=== PATIENT | female | born 1950 | race Caucasian/White ===

== ENCOUNTER 2024-10-29 18:00 | Inpatient (IN) | payer MEDICARE, OTHER ==
[~2024-10-29] VITALS: Ht 157.5 cm; Wt 58.2 kg
[2024-10-29] MEDS: LIDOCAINE 5% TOPICAL PATCH TOP ONE (18:15)
[2024-10-29] MEDS: ACETAMINOPHEN 325 MG TAB PO ONE (18:15)
--- NOTE | 2024-10-29 18:28 | ED.PDOC ---
History of Present Illness HPI Comments 73 y/o F, with a history of fibromyalgia, HTN, thyroid disease, and pacemaker, presents with c/o left-chest wall pain s/p mechanical fall and injury, today. Patient endorses on developing pain after sustaining a fall onto her left-chest area when she tripped on a carpet at home 3x days ago. She comments pain being an 8/10 in severity, not losing consciousness then, and denies being on any blood thinner medications, currently. Patient reports no further relevant or pertinent information, such as having any prior symptoms or previous injuries. She denies having any additional injuries, weakness, numbness, tingling, shortness of breath, or other associated symptoms or modifiers at this time. Chief Complaint: Fall Injury Time Seen by MD: 18:10 Primary Care Provider: Tianna Ardon Notes: Nurses Notes, Medications, Allergies Allergies: Coded Allergies: NO KNOWN ALLERGIES (Unverified , 10/29/24) Information Source: Patient Mode of Arrival: Ambulatory Severity: Moderate Timing: Days Duration: Since onset Prehospital treatment: None Past Medical History PAST MEDICAL HISTORY: HTN, Thyroid Past Medical History (Other): fibromyalgia Surgical History: Pacemaker PROGRAM RESEARCH SPECIALIST History: Denies all PROGRAM RESEARCH SPECIALIST Hx Family History Family History: Unknown Social History Smoker: Non-Smoker Alcohol: Denies ETOH Use Drugs: Denies Drug Use Lives In: Home Musculoskeletal: reports: others (left-chest wall pain ) All Other Systems: Reviewed and Negative (negative unless otherwise stated above or in HPI) Physical Exam General Appearance: No Apparent Distress, Normal HEENT: Normal ENT Inspection, Pharynx Normal, TMs Normal Neck: Full Range of Motion, Non-Tender, Normal, Normal Inspection Respiratory: Chest Non-Tender, Lungs Clear, No Accessory Muscle Use, No Respiratory Distress, Normal Breath Sounds Cardiovascular: No Edema, No JVD, No Murmur, No Gallop, Normal Peripheral Pulses, Regular Rate/Rhythm Breast Exam: Deferred Gastrointestinal: No Organomegaly, Non Tender, No Pulsatile Mass, Normal Bowel Sounds, Soft Genitalia: Deferred Pelvic: Deferred Rectal: Deferred Extremities: No calf tenderness, Normal capillary refill, Normal inspection, Normal range of motion, Non-tender, No pedal edema Musculoskeletal : Location: Left Extremity Location: Chest (chest wall) Apperance: Normal, Tenderness Neurologic: Alert, 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 Was a procedure done?: No Differential Dx Considerations may include: musculoskeletal pain, fractures, contusion, bruising X-Ray, Labs, Meds, VS Vital Signs Date Time Temp Pulse Resp B/P (MAP) Pulse Ox O2 Delivery O2 Flow Rate FiO2 10/29/24 19:45 82 19 96 Room Air 10/29/24 19:45 100.9 82 19 199/85 (123) 96 100.9 10/29/24 18:09 97.7 100 18 200/86 (124) 96 Lab Test 10/29/24 20:29 10/29/24 19:04 Range/Units Lactic Acid Level Pending White Blood Count 8.3 4.4-10.8 10^3/uL Red Blood Count 5.12 4.0-5.20 10^6/uL Hemoglobin 15.0 12.2-16.2 g/dL Hematocrit 45.2 36.0-46.0 % Mean Corpuscular Volume 88.1 80.0-100.0 fL Mean Corpuscular Hemoglobin 29.4 28.0-32.0 pg Mean Corpuscular Hemoglobin Concent 33.3 32.0-36.0 g/dL Red Cell Distribution Width 15.0 H 11.8-14.3 % Platelet Count 191 140-450 10^3/uL Mean Platelet Volume 10.0 6.9-10.8 fL Neutrophils (%) (Auto) 81.1 H 37.0-80.0 % Lymphocytes (%) (Auto) 8.2 L 10.0-50.0 % Monocytes (%) (Auto) 9.0 0.0-12.0 % Eosinophils (%) (Auto) 1.3 0.0-7.0 % Basophils (%) (Auto) 0.4 0.0-2.0 % Neutrophils # (Auto) 6.7 1.6-8.6 10 ^3/uL Lymphocytes # (Auto) 0.7 0.4-5.4 10 ^3/uL Monocytes # (Auto) 0.7 0-1.3 10 ^3/uL Eosinophils # (Auto) 0.1 0-0.8 10 ^3/uL Basophils # (Auto) 0 0-0.2 10 ^3/uL Nucleated Red Blood Cells 0.1 % Sodium Level 139 136-145 mmol/L Potassium Level 3.6 3.5-5.1 mmol/L Chloride Level 106 98-107 mmol/L Carbon Dioxide Level 24 20-31 mmol/L Anion Gap 9 5-15 Blood Urea Nitrogen 11 9-23 mg/dL Creatinine 0.91 0.550-1.02 mg/dL Glomerular Filtration Rate Calc 67 >90 mL/min BUN/Creatinine Ratio 12.1 10.0-20.0 Serum Glucose 101 74-106 mg/dL Calcium Level 10.3 8.7-10.4 mg/dL Troponin I High Sensitivity 7 </=34 ng/L Current Medications Medications (Trade) Dose Ordered Sig/Cherie Route Start Time Stop Time Status Last Admin Acetaminophen (Tylenol Tablet) 650 mg ONCE ONCE PO 10/29/24 18:15 10/29/24 18:16 DC 10/29/24 18:15 Lidocaine (Lidoderm 5% Topical Patch) 1 patch ONCE ONCE TOP 10/29/24 18:15 10/29/24 18:16 DC 10/29/24 18:15 [place] [id number] Ph: [phone] DIAGNOSTIC IMAGING Diagnostic Imaging Report : [id number] Signed PATIENT: ROGERS PERRY ACCT: [id number] UNIT: [id number] : 1950 LOC: ER ROOM / BED: / AGE / SEX: 73 / F ADM STATUS: REG ER SERVICE 10 ORDERING PHYSICIAN: MARICHUY ALMONTE MD PROCEDURE(s): CXR2 - CHEST TWO VIEWS ROUTINE REASON: Left sided chest pain ORDER NUMBER(s): [id number], ACCESSION NUMBER(s): [id number] XY CHEST TWO VIEWS ROUTINE CLINICAL HISTORY: Left sided chest pain COMPARISON: None TECHNIQUE: Frontal and lateral view of the chest was obtained FINDINGS: Lines and Tubes: None. Redemonstration of left sided pacemaker. Midline sternotomy wires are noted. Lungs: No focal consolidation. Pleura: No effusion. No pneumothorax. Cardiomediastinal contours: Unremarkable Bones: No acute osseous abnormality. IMPRESSION: No acute cardiopulmonary disease. ATED BY: KARLY MONCADA DO DICTATED DATE/TIME: 10/29/241848 SIGNED BY: KARLY MONCADA DO SIGNED DATE/TIME: 10/29/241848 CC: Time of 1ST Reevaluation: 18:40 Reevaluation 1ST: Unchanged Patient Education/Counseling: Diagnosis, Treatment Family Education/Counseling: No Family Present Additional Information reviewed previous ED physician note on 03/29/2010 ordered: EKG, troponin, CBC, BMP, CXR reviewed and concur with results listed: CXR Departure 1 Departure Time of Disposition: 20:57 (Patient with left-sided chest pain as well as AV for tachycardia and hypertension. We will treat patient for infection and admit patient for further workup.) Impression: Primary Impression: Acute chest pain Additional Impressions: Fever Qualified Codes: R50.9 - Fever, unspecified Hypertension Qualified Codes: I10 - Essential (primary) hypertension Disposition: ADMITTED INPATIENT Admit to: Med Surg Condition: Serious Critical Care Note Critical Care Time?: Yes Critical care comment: Acute chest pain Authorized and Performed by: Marichuy Almonte MD Total critical care time: Approximately 36 minutes Due to a high probability of clinically significant, life threatening deterioration, the patient required my highest level of preparedness to intervene emergently and I personally spent this critical care time directly and personally managing the patient. This critical care time included obtaining a history; examining the patient; pulse oximetry; ordering and review of studies; arranging urgent treatment with development of a management plan; evaluation of patient's response to treatment; frequent reassessment; and, discussions with other providers. This critical care time was performed to assess and manage the high probability of imminent, life-threatening deterioration that could result in multi-organ failure. It was exclusive of separately billable procedures and treating other patients and teaching time. Please see my other sections and the rest of the note for further information on patient assessment and treatment. Stability Stability form required: No Heart Score Heart Score: Heart Score Response (Comments) Value History Moderate Suspicious 1 EKG Repolarization Disturb 1 Age >65 2 Risk Factors >3 or Hx ASHD 2 Troponin >3 x's Normal limit 2 Total 8 I personally scribed for MARICHUY ALMONTE MD ([email or web address]) on 10/29/24 at 18:28. Electronically submitted by Francisco Guo ([email or web address]). I personally scribed for MARICHUY ALMONTE MD ([email or web address]) on 10/29/24 at 18:58. Electronically submitted by Francisco Guo ([email or web address]). MARICHUY ALMONTE MD Oct 29, 2024 18:28
--- NOTE | 2024-10-29 18:51 | DVH ---
XY CHEST TWO VIEWS ROUTINE CLINICAL HISTORY: Left sided chest pain COMPARISON: None TECHNIQUE: Frontal and lateral view of the chest was obtained FINDINGS: Lines and Tubes: None. Redemonstration of left sided pacemaker. Midline sternotomy wires are noted. Lungs: No focal consolidation. Pleura: No effusion. No pneumothorax. Cardiomediastinal contours: Unremarkable Bones: No acute osseous abnormality. IMPRESSION: No acute cardiopulmonary disease.
[2024-10-29 19:24] LABS: Basophils # (auto) 0 10 ^3/uL (0-0.2); Basophils % (auto) 0.4 % (0.0-2.0); Eosinophils # (auto) 0.1 10 ^3/uL (0-0.8); Eosinophils % (auto) 1.3 % (0.0-7.0); Hematocrit 45.2 % (36.0-46.0); Lymphocytes # (auto) 0.7 10 ^3/uL (0.4-5.4); Lymphocytes % (auto) 8.2 % (10.0-50.0); Mean Corpuscular Hemoglobin 29.4 pg (28.0-32.0); Mean Corpuscular Hgb Conc. 33.3 g/dL (32.0-36.0); Mean Corpuscular Volume 88.1 fL (80.0-100.0); Monocytes # (auto) 0.7 10 ^3/uL (0-1.3); Neutrophils # (auto) 6.7 10 ^3/uL (1.6-8.6); Neutrophils % (auto) 81.1 % (37.0-80.0); Nucleated Red Blood Cells % 0.1 %; Platelet Count (auto) 191 10^3/uL (140-450); Red Blood Cells 5.12 10^6/uL (4.0-5.20); White Blood Cell 8.3 10^3/uL (4.4-10.8)
[2024-10-29 19:34] LABS: Chloride 106 mmol/L (98-107); Potassium 3.6 mmol/L (3.5-5.1); Sodium 139 mmol/L (136-145)
[2024-10-29 19:35] LABS: Anion Gap 9 (5-15); Calcium 10.3 mg/dL (8.7-10.4); Carbon Dioxide 24 mmol/L (20-31)
[2024-10-29 19:40] LABS: BUN/Creatinine Ratio 12.1 (10.0-20.0); Blood Urea Nitrogen 11 mg/dL (9-23); Glucose 101 mg/dL (74-106)
[2024-10-29] MEDS: CEFEPIME 2GM/50ML NS 50 ML IV ONE (20:30)
[2024-10-29] MEDS: ONDANSETRON HCL 4 MG/2 ML VIAL IV ONE (21:48)
[2024-10-29 22:53] VITALS: O2SAT 98
[2024-10-29] MEDS ORDERED: ONDANSETRON HCL 4 MG/2 ML VIAL IV PRN (23:15)
[2024-10-29] MEDS ORDERED: MORPHINE SULFATE INJ 2 MG/ml SYRG IV PRN (23:15)
--- NOTE | 2024-10-29 23:40 | DVHHPRES ---
History of Present Illness Resident Creating Document: ABHISHEK MAHER RESIDENT Reason for Visit: left chest wall pain s/p fall History of Present Illness This is a 73-year-old female who comes into the ED with chief complaint of left- sided chest wall pain status post mechanical fall. Patient deny any current smoking, alcohol or drug abuse. She has a past medical history relevant for fibromyalgia, hypertension, hypothyroidism, pacemaker placement in 1984, aortic aneurysm repair three years ago. Patient stated that three days ago around midnight she stated the to go to the bathroom and trip on her carpet, she fell and landed on her left side, does not know she lost consciousness, she started experiencing severe pain on the left side of her chest, denied any nausea, vomiting, dizziness, lightheadedness, sei zures. Patient also states that she has been having chills and sensation of warmness, denies any abdominal pain, dysuria, urinary urgency or frequency, diarrhea or constipation. She currently states having mild left-sided chest pain, nontender, nonexertion al, relief by not moving. Cardiovascular: HTN, hyperipidemia Endocrine: Hypothyroidism Past Surgical History Pacemaker, aortic aneurysm repair Smoke: Quit ALCOHOL: none Drugs: None Review of Systems Constitutional: No: Fever, Chills, Sweats, Weakness, Malaise, Other Eyes: No: Pain, Vision change, Conjunctivae inflammation, Eyelid inflammation, Other, Redness ENT: No: Ear pain, Ear discharge, Nose pain, Nose discharge, Nose congestion, Mouth pain, Mouth swelling, Throat pain, Throat swelling, Other Respiratory: No: Cough, Dry, Shortness of breath, SOB with excertion, Wheezing, Hemoptysis, Pleuritic Pain, Sputum, Wheezing, Other Cardiovascular: No: Chest Pain, Palpitations, Orthopnea, Paroxysmal Noc. Dyspnea, Edema, Lt Headedness, Other Gastrointestinal: No: Nausea, Vomiting, Abdominal Pain, Diarrhea, Constipation, Melena, Hematochezia, Other Genitourinary: No Dysuria, No Frequency, No Incontinence, No Hematuria, No Retention, No Other Musculoskeletal: other (Left-sided chest wall pain); No: neck pain, shoulder pain, arm pain, back pain, hand pain, leg pain, foot pain Skin: No: Rash, Lesions, Jaundice, Bruising, Other Neurological: No: Weakness, Numbness, Incoordination, Change in speech, Confusion, Seizures, Other Allergies: Coded Allergies: NO KNOWN ALLERGIES (Unverified , 10/29/24) Medications Current Medications Medications Dose Ordered Sig/Cherie Route Start Time Stop Time Status Last Admin Dose Admin Morphine Sulfate 2 mg Q30M PRN IV 10/29/24 23:15 Carvedilol 12.5 mg Q12HR PO 10/30/24 10:00 Levothyroxine Sodium 88 mcg QAM@0600 PO 10/30/24 06:00 Acetaminophen/ Hydrocodone Bitart 1 tab Q4HPRN PRN PO 10/29/24 23:15 Hydralazine HCl 10 mg Q6HP PRN IV 10/29/24 23:15 Atorvastatin Calcium 20 mg HS PO 10/30/24 22:00 Ondansetron HCl 4 mg Q4HPRN PRN IV 10/29/24 23:15 Exam Vital Signs Vital Signs Date Time Temp Pulse Resp B/P (MAP) Pulse Ox O2 Delivery O2 Flow Rate FiO2 10/29/24 22:53 98 Room Air* 0 21 10/29/24 22:11 98.9 72 182/75 (110) 98.9 10/29/24 19:45 19 General Appearance: Alert, Oriented X3, Cooperative, No acute distress HEENT: Atraumatic, PERRLA, EOMI, Mucous membr. moist/pink Respiratory: Clear to auscultation, Normal air movement Cardiovascular: Regular rate, Normal S1, Normal S2, No murmurs Abdominal: Normal bowel sounds, Soft, No tenderness, No hepatospenomegaly Extremities: No clubbing, No cyanosis, No edema, Normal pulses Skin: No rashes, No breakdown, No significant lesion Neuro: Normal gait, Normal speech, Strength at 5/5 X4 ext, Normal tone Psych/Mental Status: Mental status NL, Mood NL Labs/Xrays Labs Test 10/29/24 21:42 10/29/24 20:29 10/29/24 19:04 Range/Units Troponin I High Sensitivity 6 </=34 ng/L Lactic Acid Level 1.0 0.4-2.0 mmol/L White Blood Count 8.3 4.4-10.8 10^3/uL Red Blood Count 5.12 4.0-5.20 10^6/uL Hemoglobin 15.0 12.2-16.2 g/dL Hematocrit 45.2 36.0-46.0 % Mean Corpuscular Volume 88.1 80.0-100.0 fL Mean Corpuscular Hemoglobin 29.4 28.0-32.0 pg Mean Corpuscular Hemoglobin Concent 33.3 32.0-36.0 g/dL Red Cell Distribution Width 15.0 H 11.8-14.3 % Platelet Count 191 140-450 10^3/uL Mean Platelet Volume 10.0 6.9-10.8 fL Neutrophils (%) (Auto) 81.1 H 37.0-80.0 % Lymphocytes (%) (Auto) 8.2 L 10.0-50.0 % Monocytes (%) (Auto) 9.0 0.0-12.0 % Eosinophils (%) (Auto) 1.3 0.0-7.0 % Basophils (%) (Auto) 0.4 0.0-2.0 % Neutrophils # (Auto) 6.7 1.6-8.6 10 ^3/uL Lymphocytes # (Auto) 0.7 0.4-5.4 10 ^3/uL Monocytes # (Auto) 0.7 0-1.3 10 ^3/uL Eosinophils # (Auto) 0.1 0-0.8 10 ^3/uL Basophils # (Auto) 0 0-0.2 10 ^3/uL Nucleated Red Blood Cells 0.1 % Sodium Level 139 136-145 mmol/L Potassium Level 3.6 3.5-5.1 mmol/L Chloride Level 106 98-107 mmol/L Carbon Dioxide Level 24 20-31 mmol/L Anion Gap 9 5-15 Blood Urea Nitrogen 11 9-23 mg/dL Creatinine 0.91 0.550-1.02 mg/dL Glomerular Filtration Rate Calc 67 >90 mL/min BUN/Creatinine Ratio 12.1 10.0-20.0 Serum Glucose 101 74-106 mg/dL Calcium Level 10.3 8.7-10.4 mg/dL Assessment/Plan Assessment/Plan #Left-sided chest wall pain status post mechanical fall #Noncardiac chest pain, likely costochondritis Ordered Head CT Ordered left rib x-ray [place] p.r.n. Pending UDS and urinalysis Ordered folate and B12 #Hypertensive urgency #Medical noncompliance Coreg 12.5 mg p.o. b.i.d. hydralazine 10 mg IV q.6 p.r.n. Ordered EKG Cardiac diet #Hyperlipidemia Lipitor 20 mg p.o. q.d. #Hypothyroidism Synthroid 88 mcg p.o. q.d. Order TSH #Fibromyalgia Gabapentin 300 mg p.o. t.i.d. Ordered ESR and CRP #History of aortic aneurysm repair #Status post pacemaker Monitor Goals of care were discussed for 30 minutes. Full code Case was discussed with Dr. Luna Plan discussed with: Patient My Orders Orders - ABHISHEK MAHER RESIDENT Procedure Category Date Status Time Admit ADMIT 10/29/24 Transmitted 23:06 Notify Md Of Changes VENKATA 10/29/24 In Process From Base 23:06 Morphine Sulfate PHA 10/29/24 In Process Injection 23:15 Electrocardigram EKG 10/29/24 Logged 23:06 L Rib X Ray XY 10/29/24 Logged 23:[address] 10/29/24 Logged 23:08 Carvedilol Tablet PHA 10/30/24 In Process (Coreg Tablet) 10:00 Levothyroxine Tablet PHA 10/30/24 In Process (Synthroid Tablet) 06:00 Cardiac DIET 10/30/24 Transmitted Diet-2gna,Lofat,Lochol Breakfast Hydrocodone-Acet PHA 10/29/24 In Process 5/325mg Tab ([place] 23:15 Drug Screen LAB 10/29/24 Logged 23:08 Magnesium LAB 10/29/24 Logged 23:08 Thyroid Stimulating LAB 10/29/24 Logged Hormone 23:08 Hydralazine Injection PHA 10/29/24 In Process (Apresoline Inject 23:15 Atorvastatin (Lipitor) PHA 10/30/24 In Process 22:00 Complete Blood Count LAB 10/30/24 Verified 04:00 Basic Metabolic Panel LAB 10/30/24 Verified 04:00 Lactic Acid W/ Reflex LAB 10/30/24 Verified Order 04:00 Ondansetron Hcl PHA 10/29/24 In Process (Zofran) 23:15 Date of Service: Oct 29, 2024 Billing Provider: CHRISTOPHE LUNA MD Common Visit Codes: 07852-[id number] INP/OBS CARE (HIGH) Secondary Visit Codes: 39381-JEROEGGD CARE PLAN 30 MINUTES ABHISHEK MAHER RESIDENT Oct 29, 2024 23:40 CHRISTOPHE LUNA MD Oct 30, 2024 12:17
--- NOTE | 2024-10-29 23:41 | DVH ---
CLINICAL INDICATION: s/p fall, rib pain TECHNIQUE: 3 radiographic views of the [id number] were obtained. Comparison: None FINDINGS/IMPRESSION: There is no evidence of acute fracture or dislocation. Pulse generator over the left chest is obscuring detail of multiple left ribs. The visualized joint space is well maintained. The alignment is anatomical. There is no radiopaque foreign body. HS:Y
--- NOTE | 2024-10-29 23:44 | DVH ---
EXAM: CT HEAD WITHOUT CONTRAST INDICATION: s/p mechanical fall TECHNIQUE: CT of the head without intravenous contrast. Radiation Dose Information: CT Dose: CTDI volume is 49.43 mGy. Dose-length product is 792.58 mGy*cm The dose indicators for CT are the volume Computed Tomography (CT) Dose Index (CTDIvol) and the Dose Length Product (DLP), and are measured in units of mGy and mGy-cm, respectively. These indicators are not patient dose, but values generated from the CT scanner acquisition factors. The report includes radiation exposure data for exposures received during this examination. COMPARISON: None FINDINGS: There is no evidence of acute intracranial hemorrhage, extra-axial collection, mass effect, midline s hift, herniation or hydrocephalus. The ventricles, sulci and cisterns are age appropriate. The ruiz-white differentiation is intact. Patchy periventricular and subcortical white matter hypoattenuation is nonspecific but may be related to small vessel ischemic disease. The visualized paranasal sinuses and mastoid air cells are clear. The surrounding soft tissues and osseous structures are unremarkable. IMPRESSION: 1. No acute intracranial hemorrhage. 2. No CT findings of displaced skull fracture. 3. No CT findings of territorial ischemia. HS:Y
[2024-10-30 00:48] LABS: Folate (Folic Acid) 18.94 ng/mL (>5.38)
[2024-10-30] MEDS: hydrALAZINE HCL 20 MG/ML VL IV PRN (01:08)
[2024-10-30 01:11] VITALS: BP 176/79; PULSE 89; RESP 16; TEMP 98.4; O2SAT 96; O2SAT 97
[2024-10-30 01:21] LABS: Erythrocyte Sedimentation Rate 7 mm/hr (0-20)
[2024-10-30] MEDS: HYDROcodone-ACET 5/325MG TAB PO PRN (01:33)
[2024-10-30] MEDS: CARVEDILOL 12.5 MG TAB PO ONE (02:29)
[2024-10-30] MEDS: CYANOCOBALAMIN (B-12) 1000 MCG/1 ML VIAL IM ONE (02:30)
[2024-10-30] MEDS: SODIUM CHLORIDE 0.9% 1,000 ML IV ONE (02:32)
[2024-10-30 05:13] LABS: Basophils # (auto) 0.1 10 ^3/uL (0-0.2); Basophils % (auto) 1.2 % (0.0-2.0); Eosinophils # (auto) 0.1 10 ^3/uL (0-0.8); Eosinophils % (auto) 0.9 % (0.0-7.0); Hematocrit 41.2 % (36.0-46.0); Hemoglobin 13.8 g/dL (12.2-16.2); Lymphocytes # (auto) 0.6 10 ^3/uL (0.4-5.4); Lymphocytes % (auto) 7.8 % (10.0-50.0); Mean Corpuscular Hemoglobin 29.7 pg (28.0-32.0); Mean Corpuscular Hgb Conc. 33.6 g/dL (32.0-36.0); Mean Corpuscular Volume 88.4 fL (80.0-100.0); Monocytes # (auto) 0.7 10 ^3/uL (0-1.3); Monocytes % (auto) 9.5 % (0.0-12.0); Neutrophils % (auto) 80.6 % (37.0-80.0); Platelet Count (auto) 177 10^3/uL (140-450); Red Blood Cells 4.66 10^6/uL (4.0-5.20); Red Cell Distribution Width 14.8 % (11.8-14.3); White Blood Cell 7.5 10^3/uL (4.4-10.8)
[2024-10-30 05:20] LABS: Chloride 106 mmol/L (98-107); Sodium 138 mmol/L (136-145)
[2024-10-30 05:21] LABS: Anion Gap 9 (5-15); Calcium 9.7 mg/dL (8.7-10.4); Carbon Dioxide 23 mmol/L (20-31)
[2024-10-30 05:26] LABS: BUN/Creatinine Ratio 13.8 (10.0-20.0); Blood Urea Nitrogen 11 mg/dL (9-23)
[2024-10-30 05:27] LABS: Free T3 2.6 pg/mL (2.3-4.2); Glucose 123 mg/dL (74-106); Potassium 3.4 mmol/L (3.5-5.1)
[2024-10-30 05:28] LABS: Free T4 (Free Thyroxine) 0.72 ng/dL (0.89-1.76)
[2024-10-30] MEDS: GABAPENTIN 300 MG CAP PO SCH (06:00)
[2024-10-30] MEDS: LEVOTHYROXINE SODIUM 88 MCG TAB PO SCH (06:00)
[2024-10-30 08:03] VITALS: BP 172/58; PULSE 69; RESP 20; TEMP 97; O2SAT 98
[2024-10-30 08:25] VITALS: BP 128/47; PULSE 75; RESP 16; TEMP 97.9; O2SAT 97
[2024-10-30 09:30] LABS: Urine Bacteria None Seen /hpf (None Seen)
[2024-10-30 09:52] LABS: Urine Blood Negative /uL (Negative); Urine Clarity Clear (Clear); Urine Color Yellow (Yellow); Urine Mucus FEW (None Seen); Urine Protein, UAD 1+ (Negative); Urine Specific Gravity 1.025 (1.001-1.035); Urine Squamous Epithelial Cell FEW /hpf (<5); Urine Urobilinogen Normal (Negative); Urine WBC 17 /hpf (0 - 5)
[2024-10-30 10:00] LABS: Amphetamine Screen, Urine Neg (NEGATIVE); Opiate Scree,Urine Neg (NEGATIVE)
[2024-10-30 10:12] LABS: Barbiturate Scree,Urine Neg (NEGATIVE); Benzodiazephine Screen, Urine Neg (NEGATIVE); Cannabinoid Screen, Urine Neg (NEGATIVE); Cocaine Screen, Urine Neg (NEGATIVE); Phencyclidine Screen, Urine Neg (NEGATIVE)
[2024-10-30] MEDS: POTASSIUM CHL 20 Meq TABLET PO ONE (10:12)
[2024-10-30] MEDS: CARVEDILOL 12.5 MG TAB PO SCH (10:16)
[2024-10-30] MEDS: IBUPROFEN 400 MG TAB PO ONE (11:05)
[2024-10-30 11:29] VITALS: BP 136/58; PULSE 76; RESP 16; TEMP 98.2; O2SAT 96
[2024-10-30] MEDS ORDERED: ATOR20TA50 PO (12:09)
[2024-10-30] MEDS ORDERED: IBUP-1454 PO (12:09)
[2024-10-30] MEDS ORDERED: CARV-216 PO (12:09)
[2024-10-30] MEDS ORDERED: GABA-1250 PO (12:09)
[2024-10-30] MEDS ORDERED: NITR-52 PO (12:09)
[2024-10-30] MEDS ORDERED: AMLO1TAB22 PO (12:09)
[2024-10-30] MEDS ORDERED: LEVO-177 PO (12:09)
--- NOTE | 2024-10-30 19:15 | DVHDSRES ---
Discharge Summary Date of Admission Resident Creating Document: MARIA LAY RESIDENT Oct 29, 2024 at 23:06 Date of Discharge: Oct 30, 2024 Admitting Diagnosis #Left-sided chest wall pain status post mechanical fall #Noncardiac chest pain, likely costochondritis #Hypertensive urgency #Medical noncompliance #Hyperlipidemia #Hypothyroidism #Fibromyalgia #History of aortic aneurysm repair Wounds: none Labs/Diagnostic Data: Laboratory Results Test 10/30/24 08:50 10/30/24 04:49 10/29/24 23:46 10/29/24 23:06 Urine Color Yellow (Yellow) Urine Clarity Clear (Clear) Urine pH 6.0 (5.0-9.0) Urine Specific [place] 1.025 (1.001-1.035) Urine Protein 1+ (Negative) Urine Ketones 1+ (Negative) Urine Blood Negative /uL (Negative) Urine Nitrite Negative (Negative) Urine Bilirubin Negative (Negative) Urine Urobilinogen Normal mg/dL (Negative) Urine Leukocyte Esterase 2+ /uL (Negative) Urine RBC 2 /hpf (0 - 4) Urine WBC 17 /hpf (0 - 5) Urine Squamous Epithelial Cells Few /hpf (<5) Urine Bacteria None seen /hpf (None Seen) Urine Mucus Few (None Seen) Urine Glucose Normal mg/dL (Normal) Urine Opiates Screen Neg (NEGATIVE) Urine Fentanyl Screen Neg (NEGATIVE) Urine Barbiturates Screen Neg (NEGATIVE) Urine Phencyclidine Screen Neg (NEGATIVE) Urine Amphetamines Screen Neg (NEGATIVE) Urine Benzodiazepines Screen Neg (NEGATIVE) Urine Cocaine Screen Neg (NEGATIVE) Urine Cannabinoids Screen Neg (NEGATIVE) White Blood Count 7.5 10^3/uL (4.4-10.8) Red Blood Count 4.66 10^6/uL (4.0-5.20) Hemoglobin 13.8 g/dL (12.2-16.2) Hematocrit 41.2 % (36.0-46.0) Mean Corpuscular Volume 88.4 fL (80.0-100.0) Mean Corpuscular Hemoglobin 29.7 pg (28.0-32.0) Mean Corpuscular Hemoglobin Concent 33.6 g/dL (32.0-36.0) Red Cell Distribution Width 14.8 % (11.8-14.3) Platelet Count 177 10^3/uL (140-450) Mean Platelet Volume 10.1 fL (6.9-10.8) Neutrophils (%) (Auto) 80.6 % (37.0-80.0) Lymphocytes (%) (Auto) 7.8 % (10.0-50.0) Monocytes (%) (Auto) 9.5 % (0.0-12.0) Eosinophils (%) (Auto) 0.9 % (0.0-7.0) Basophils (%) (Auto) 1.2 % (0.0-2.0) Neutrophils # (Auto) 6.0 10 ^3/uL (1.6-8.6) Lymphocytes # (Auto) 0.6 10 ^3/uL (0.4-5.4) Monocytes # (Auto) 0.7 10 ^3/uL (0-1.3) Eosinophils # (Auto) 0.1 10 ^3/uL (0-0.8) Basophils # (Auto) 0.1 10 ^3/uL (0-0.2) Nucleated Red Blood Cells 0.0 % Sodium Level 138 mmol/L (136-145) Potassium Level 3.4 mmol/L (3.5-5.1) Chloride Level 106 mmol/L (98-107) Carbon Dioxide Level 23 mmol/L (20-31) Anion Gap 9 (5-15) Blood Urea Nitrogen 11 mg/dL (9-23) Creatinine 0.80 mg/dL (0.550-1.02) Glomerular Filtration Rate Calc 78 mL/min (>90) BUN/Creatinine Ratio 13.8 (10.0-20.0) Serum Glucose 123 mg/dL (74-106) Lactic Acid Level 0.9 mmol/L (0.4-2.0) Calcium Level 9.7 mg/dL (8.7-10.4) Free Thyroxine (T4) Calculated 0.72 ng/dL (0.89-1.76) Free Triiodothyronine (T3) pg/mL 2.60 pg/mL (2.3-4.2) Erythrocyte Sedimentation Rate 7 mm/hr (0-20) Magnesium Level 1.8 mg/dL (1.6-2.6) Troponin I High Sensitivity 7 ng/L (</=34) C-Reactive Protein High Sensitivity 0.28 mg/dL (<1.0) Vitamin B12 Level 198 pg/mL (211-911) Folic Acid 18.94 ng/mL (>5.38) Thyroid Stimulating Hormone (TSH) 19.27 uIU/mL (0.55-4.78) Other Laboratory Tests 10/30/24 04:49 Brief Hx & Hospital Course: HPI This is a 73-year-old female who comes into the ED with chief complaint of left- sided chest wall pain status post mechanical fall. Patient stated that three days ago around midnight she stated the to go to the bathroom and trip on her carpet, she fell and landed on her left side, does not know she lost consciousness, she started experiencing severe pain on the left side of her chest, denied any nausea, vomiting, dizziness, lightheadedness, seizures. Patient also states that she has been having chills and sensation of warmness, denies any abdominal pain, dysuria, urinary urgency or frequency, diarrhea or constipation. She currently states having mild left-sided chest pain, nontender, nonexertional, relief by not moving. Past medical history: fibromyalgia, hypertension, hypothyroidism Past Surgical History: Pacemaker, aortic aneurysm repair Social history: Patient reports previous smoke but denies current smoking, alcohol, drug use Hospital course Patient was admitted to the hospital for left-sided chest pain which was tender on touch. Left rib x-ray was done which did not show any acute fracture or dislocation. ECG revealed showed no signs of acute ischemia and troponin levels were within normal limits. Patient had elevated blood pressure on admission started on her home medication of carvedilol 12.5 mg b.i.d. following which the blood pressure was under control. TSH levels were elevated and free T4 was low, patient was noncompliant with the hypothyroid medication. Urinalysis showed 2+ leukocyte esterase and urine WBCs were 17 with the patient denied dysuria had mildly elevated WBC with left shift. After evaluation patient was discharged in stable condition to home advised to strictly supply with a home blood pressure and hypothyroid medication. Discharge plan Discharged in stable condition to home Follow up in the discharge clinic in 1 week Medication sent: Amlodipine 5 mg, carvedilol 12.5 mg b.i.d., atorvastatin 20 mg HS, ibuprofen 600 mg b.i.d. p.r.n. for 15 days, levothyroxine 88 mcg p.o. q.a.m., nitrofurantoin 100 mg p.o. b.i.d. for 5 days Consults/Reason for consult none Operations or Procedures Head CT without contrast FINDINGS: There is no evidence of acute intracranial hemorrhage, extra-axial collection, mass effect, midline shift, herniation or hydrocephalus. The ventricles, sulci and cisterns are age appropriate. The ruiz-white differentiation is intact. Patchy periventricular and subcortical white matter hypoattenuation is nonspecific but may be related to small vessel ischemic disease. The visualized paranasal sinuses and mastoid air cells are clear. The surrounding soft tissues and osseous structures are unremarkable. IMPRESSION: 1. No acute intracranial hemorrhage. 2. No CT findings of displaced skull fracture. 3. No CT findings of territorial ischemia. Left rib x-ray FINDINGS/IMPRESSION: There is no evidence of acute fracture or dislocation. Pulse generator over the left chest is obscuring detail of multiple left ribs. The visualized joint space is well maintained. The alignment is anatomical. There is no radiopaque foreign body. Condition at Discharge: Good Final Diagnosis/Problems List #Left-sided chest wall pain status post mechanical fall #Noncardiac chest pain, likely costochondritis #Hypertensive urgency #Hypothyroidism #?Fibromyalgia Discharge Disposition: Home Discharge Instruct/Medications Diet: Cardiac 2g Na,low cholest Activity: No Restrictions, As Tolerated Follow Up/Referral: Follow up with the PCP in one week Follow up in the D/C clinic in one week Medications: continue on home medications and strict compliance other meds as per EMR Discharge Statement: "Patient was advised to return to the ER or call 911 if any headaches, dizziness, shortness of breath, chest pain, abdominal pain, bleeding, fevers, or worsening of medical condition. Patient was counseled about treatment plan, medications, possible side effects, patientverbalized understanding. All questions were answered to the best of my ability. This discharge took greater then 30 minutes in planning, reviewing documentation, counseling the patient, and discussing with other team members." ASSESSMENT ASSESSMENT Assessment #Left-sided chest wall pain status post mechanical fall #Noncardiac chest pain, likely costochondritis #Hypertensive urgency #Medical noncompliance #Hyperlipidemia #Hypothyroidism #?Fibromyalgia #History of aortic aneurysm repair #Status post pacemaker MARIA LAY RESIDENT Oct 30, 2024 19:15
[2024-10-30] MEDS ORDERED: ATORVASTATIN 20 MG TAB PO SCH (22:00)
== END 2024-10-30 15:30 | disposition home or self-care (01) | DRG 206 ==
LOC: ER 18:00 → OVERFLOW 23:06
PROVIDERS: ADMIT Hospitalist; ATTEND Hospitalist
DX: M94.0 Chondrocostal junction syndrome [Tietze] (principal); I10 Essential (primary) hypertension; E03.9 Hypothyroidism, unspecified; I16.0 Hypertensive urgency; Z91.199 Patient's noncompliance with other medical treatment and regimen due to unspecified reason; E78.5 Hyperlipidemia, unspecified; M79.7 Fibromyalgia; Z95.0 Presence of cardiac pacemaker; W18.39XA Other fall on same level, initial encounter; Y93.89 Activity, other specified; Y92.89 Other specified places as the place of occurrence of the external cause; Y99.8 Other external cause status
CPT/HCPCS: 36415; 70450; 71046; 71101; 80048; 80307; 81001; 82607; 82746; 83605; 83735; 84439; 84443; 84481; 84484; 85025; 85652; 86141; 87040; 99291; G0378; J0692; J2405